=== PATIENT | female | born 1980 | race Caucasian/White ===

== ENCOUNTER 2018-10-19 19:29 | Emergency (ER) | payer OTHER ==
[~2018-10-19] VITALS: Ht 154.9 cm; Wt 115.7 kg
[~2018-10-19 19:29] MED LIST: BYETTA5 MCG/0.02; LEVOTHYROXINE PO; LEVOTHYROXINE137 MCG PO; METFORMIN HCL500 MG; TYLENOL WITH C1 EACH PO
--- OUTSIDE RECORDS SUMMARY | 2018-10-19 19:34 | XMS REPORT | Clinical Summary ---
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 Active buPROPion XL (WELLBUTRIN 0 XL) 150 MG 24 hr tablet 7 Active zolpidem (AMBIEN) 5 MG 0 tablet 7 12/23/2017 metFORMIN (GLUCOPHAGE) Take 1 tablet 180 tablet 1 1,000 mg tablet (1,000 mg 7 total) by mouth 2 (two) times a day with meals. Active Problems Problem Noted Date Hypothyroidism 06/12/2016 Diabetes type 2, uncontrolled 01/23/2016 Comments Yes Encounters Care Team Description Date Type Specialty Mary Dowling MD 10/19/2018 Refill Endocrinology after 10/18/2017 Social History Date Tobacco Use Types Packs/Day Years Used Never Smoker Alcohol Use Drinks/Week oz/Week Comments No Comments Yes Sex Assigned at Date Recorded Not on file Industry Job Start Date Occupation Not on file Not on file Not on file Travel End Travel History Travel Start No recent travel history available. Last Filed Vital Signs Not on file Plan of Treatment Health Maintenance Due Date Last Done Comments DIABETIC RETINAL EYE EXAM 1979 DIABETIC FOOT EXAM 1989 CERVICAL CANCER SCREENING 2000 URINE MICROALBUMIN 11/18/2017 11/18/2016, 01/23/2016 INFLUENZA VACCINE 01/12/2019 Results Not on fileafter 10/18/2017 Insurance Payer Benefit Subscriber ID Type Phone Address Plan / Group [employer] CIGNA OPEN xxxxxxxxx HMO ACCESS/NET WORK Advance Directives Patient has advance care planning documents on file. For more information, adiel baltazar contact: Ramin Cantu [address] [place] [address]
[2018-10-19] MEDS ORDERED: HYDROCODONE/APAP 5MG-325MG TAB PO ONE (20:00)
[2018-10-19 20:03] LABS: BASOPHILS # (AUTO) 0.1 (0.0-0.1); BASOPHILS % 0.3 % (0.0-1.0); EOSINOPHILS # (AUTO) 0.2 (0.0-0.4); EOSINOPHILS % 1.6 % (0.0-6.0); HEMATOCRIT 36.8 % (34.2-44.1); HEMOGLOBIN 12.2 g/dL (12.0-16.0); LYMPHOCYTES # (AUTO) 3.2 (1.0-3.2); LYMPHOCYTES % 21.6 % (18.0-39.1); MEAN CORPUSCULAR HEMOGLOBIN 28.9 pg (28-32); MEAN CORPUSCULAR HGB CONC 33.2 g/dL (31-35); MEAN CORPUSCULAR VOLUME 87.2 fL (81-99); MONOCYTES # (AUTO) 0.6 (0.2-0.8); NEUTROPHILS # (AUTO) 10.7 (2.1-6.9); PLATELET COUNT 333 x10e3/uL (140-360); RED BLOOD COUNT 4.22 x10e6/uL (3.6-5.1); RED CELL DISTRIBUTION WIDTH 13.4 % (11.7-14.4)
[2018-10-19 20:21] LABS: ALANINE AMINOTRANSFERASE 11 IU/L (0-55); ALBUMIN/GLOBULIN RATIO 1.1 (0.8-2.0); ALKALINE PHOSPHATASE 73 IU/L (40-150); ANION GAP 13.6 mmol/L (8-16); BLOOD UREA NITROGEN 16 mg/dL (7-26); BUN/CREATININE RATIO 21 (6-25); CALCIUM 9.7 mg/dL (8.4-10.2); CARBON DIOXIDE 26 mmol/L (22-29); CHLORIDE 104 mmol/L (98-107); CREATINE KINASE 79 IU/L (29-168); CREATININE, SERUM 0.76 mg/dL (0.57-1.11); EST GLOMERULAR FILTRATION RATE > 60 ML/MIN (60-); GLUCOSE 148 mg/dL (74-118); POTASSIUM 4.6 mmol/L (3.5-5.1); SODIUM 139 mmol/L (136-145)
[2018-10-19 22:46] VITALS: BP 129/98
--- NOTE | 2018-10-20 21:05 | Diagnostic Imaging Report ---
EXAMINATION: CHEST 2 VIEWS INDICATION: Chest pain. COMPARISON: None FINDINGS: TUBES and LINES: None. LUNGS: Lungs are well inflated. Lungs are clear. There is no evidence of pneumonia or pulmonary edema. PLEURA: No pleural effusion or pneumothorax. HEART AND MEDIASTINUM: The cardiomediastinal silhouette is unremarkable. BONES AND SOFT TISSUES: No acute osseous lesion. Soft tissues are unremarkable. UPPER ABDOMEN: No free air under the diaphragm. IMPRESSION: No acute thoracic abnormality. Signed by: Dr. Esdras Wagoner M.D. on 10/20/2018 9:02 PM
== END 2018-10-19 22:48 | disposition home or self-care (01) ==
LOC: ER 19:29
DX: R07.89 Other chest pain (principal); E05.90 Thyrotoxicosis, unspecified without thyrotoxic crisis or storm; R73.9 Hyperglycemia, unspecified
CPT/HCPCS: 36415; 71046; 80053; 82550; 82553; 84484; 85025; 93005; 93971; 99283

== ENCOUNTER 2021-03-02 20:03 | Emergency (ER) | payer SELFPAY ==
[~2021-03-02] VITALS: Ht 154.9 cm; Wt 112.9 kg
== END 2021-03-02 21:37 | disposition home or self-care (01) ==
LOC: ER 20:54
DX: R05 Cough (principal); U07.1 COVID-19; E11.9 Type 2 diabetes mellitus without complications; E05.90 Thyrotoxicosis, unspecified without thyrotoxic crisis or storm
CPT/HCPCS: 99282; U0002

== ENCOUNTER 2021-09-05 18:34 | Emergency (ER) | payer BC, SELFPAY ==
[~2021-09-05] VITALS: Ht 154.9 cm; Wt 112.9 kg
[2021-09-05 19:52] LABS: CLARITY,URINE CLEAR (CLEAR); COLOR,URINE YELLOW (YELLOW); KETONES,URINE NEGATIVE (NEGATIVE); LEUKOCYTE ESTERASE ,URINE TRACE (NEGATIVE); NITRITE,URINE NEGATIVE (NEGATIVE); PROTEIN,URINE DIPSTICK NEGATIVE (NEGATIVE); URINE UROBILINOGEN 0.2 mg/dL (0.2 - 1)
[2021-09-05 19:58] LABS: BACTERIA,URINE MODERATE /HPF; EPITHELIAL CELLS,URINE MODERATE /LPF; WBC,URINE (MAN) 0-5 /HPF (0-5)
== END 2021-09-05 21:12 | disposition home or self-care (01) ==
LOC: ER 18:58
DX: R10.32 Left lower quadrant pain (principal); K59.00 Constipation, unspecified; E11.9 Type 2 diabetes mellitus without complications; E05.90 Thyrotoxicosis, unspecified without thyrotoxic crisis or storm
CPT/HCPCS: 74018; 81001; 81025; 99283

== ENCOUNTER 2025-04-03 11:12 | Emergency (ER) | payer BC ==
[~2025-04-03] VITALS: Ht 154.9 cm; Wt 112.9 kg
[~2025-04-03 11:12] MED LIST changes: +HYDROCORTISONE30 GM TOP; +IBUPROFEN400 MG PO; +METFORMIN HCL500 MG PO; +TYLENOL EXTRA500 MG PO; +ULTRAM 50MG50 MG PO
[2025-04-03 12:00] VITALS: TEMP 98
[2025-04-03 14:51] VITALS: PULSE 76; RESP 18; O2SAT 98
== END 2025-04-03 14:55 | disposition home or self-care (01) ==
LOC: ER 11:38
DX: M79.671 Pain in right foot (principal); E11.9 Type 2 diabetes mellitus without complications; E05.90 Thyrotoxicosis, unspecified without thyrotoxic crisis or storm
CPT/HCPCS: 93970; 99284